=== PATIENT | male | born 1990 | race African-American/Black ===

== ENCOUNTER 2018-10-09 11:17 | Emergency (ER) | payer OTHER ==
[~2018-10-09] VITALS: Ht 167.6 cm; Wt 77.1 kg
[2018-10-09 11:08] VITALS: BP 141/86
--- NOTE | 2018-10-09 11:16 | NUR ---
ED Nurse Note: pt was brought in by ambulance for medical clearance, pt is accompanied by [employer], pt is on hand cuffs, pt complaining of pain on the neck and back for a month now. pt not in acute distress. pt talking to the police. will continue to monitor
[~2018-10-09 11:17] MED LIST: NKM
[2018-10-09 11:34] VITALS: BP 141/86
--- NOTE | 2018-10-09 11:56 | NUR ---
ER DISCHARGE NOTE: Patient is cleared to be discharged per ERMD, pt is aox4, accompanied by [employer], on room air, with stable vital signs. pt was given dc instructions with medical clearance, pt was able to verbalize understanding, pt id band removed. pt is handcuffed, able to ambulate with steady gait. pt took all belongings.
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
== END 2018-10-09 12:00 ==
LOC: EDBD 11:17 → EMR 11:35
DX: Z00.00 Encounter for general adult medical examination without abnormal findings (principal); I10 Essential (primary) hypertension; Z79.899 Other long term (current) drug therapy
CPT/HCPCS: 99282